=== PATIENT | female | born 1960 | race Caucasian/White ===

== ENCOUNTER 2017-02-03 00:20 | Emergency (ER) | payer OTHER ==
[~2017-02-03] VITALS: Ht 162.6 cm; Wt 55.3 kg
[2017-02-03 00:25] VITALS: BP 127/80
[2017-02-03] MEDS ORDERED: TOLT4CAP PO (00:45)
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
[2017-02-03] MEDS ORDERED: PRED20TA PO (01:17)
[2017-02-03] MEDS ORDERED: HYDR25TA PO (01:17)
[2017-02-03] MEDS ORDERED: methylPREDNISolone SOD SUCC PF 125 MG/2 ML VIAL. IM ONE (01:30)
[2017-02-03] MEDS ORDERED: predniSONE 20 MG TABLET PO ONE (01:30)
[2017-02-03] MEDS ORDERED: STARTER PACK-hydrOXYzine 1 STARTPACK TABLET PO ONE (01:30)
[2017-02-03] MEDS ORDERED: FAMOTIDINE 20 MG TABLET PO ONE (01:30)
== END 2017-02-03 01:31 | disposition home or self-care (01) ==
LOC: ER 00:20
DX: L23.7 Allergic contact dermatitis due to plants, except food (principal); Z88.1 Allergy status to other antibiotic agents
CPT/HCPCS: 96372; 99284; J2930; J7512